=== PATIENT | female | born 1990 | race Caucasian/White ===

== ENCOUNTER → 2017-12-09 | Outpatient (REF) | payer OTHER, MEDICAID ==
[2017-12-09 15:28] LABS: CHLAMYDIA DNA AMPLIFICATION NEGATIVE (NEGATIVE); GC DNA AMPLIFICATION NEGATIVE (NEGATIVE)
== END ==
LOC: M LAB REF 13:04
DX: Z34.82 Encounter for supervision of other normal pregnancy, second trimester (principal)

== ENCOUNTER → 2018-01-11 | Outpatient (CLI) | payer OTHER ==
[2018-01-11 13:53] LABS: BASO % 0.2 % (0.0-1.0); EOS # 0.2 10^3/uL (0.0-0.50); EOS % 1.5 % (0.0-3.0); HEMOGLOBIN 9.6 g/dl (12.0-15.5); LYMPH # 1.7 10^3/uL (1.5-6.5); LYMPH % 16.5 % (24.0-44.0); MEAN CORPUSCULAR HEMOGLOBIN 28.3 pg (27.0-33.0); MEAN CORPUSCULAR HGB CONC 33.1 g/dl (32.0-36.5); MEAN CORPUSCULAR VOLUME 85.5 fl (80.0-96.0); MONO # 0.7 10^3/uL (0.0-0.8); MONO % 6.5 % (0.0-5.0); NEUTROPHILS # 7.6 10^3/uL (1.8-7.7); NEUTROPHILS % 74.3 % (36.0-66.0); PLATELET COUNT, AUTOMATED 292 10^3/uL (150-450); RED BLOOD COUNT 3.39 10^6/uL (4.00-5.40); RED CELL DISTRIBUTION WIDTH 13.7 % (11.5-14.5); WHITE BLOOD COUNT 10.2 10^3/uL (4.0-10.0)
[2018-01-11 14:15] LABS: TOTAL PROTEIN,RANDOM URINE 48.4 MG/DL (0.0-12.0)
[2018-01-11 14:17] LABS: ALT/SGPT 19 U/L (12-78); AST/SGOT 17 U/L (7-37); BILIRUBIN,TOTAL 0.4 MG/DL (0.2-1.0); GLOMERULAR FILTRATION RATE > 60.0 (>60); LDH LACTATE DEHYDROGENASE 162 U/L (84-246); URIC ACID 2.6 MG/DL (2.6-6.0)
== END ==
LOC: M LAB 12:44
DX: Z34.82 Encounter for supervision of other normal pregnancy, second trimester (principal); Z3A.00 Weeks of gestation of pregnancy not specified
CPT/HCPCS: 84460

== ENCOUNTER → 2018-01-18 | Outpatient (CLI) | payer OTHER ==
[2018-01-18 14:23] LABS: BASO % 0.2 % (0.0-1.0); EOS # 0.2 10^3/uL (0.0-0.50); EOS % 2.1 % (0.0-3.0); HEMATOCRIT 28.9 % (36.0-47.0); HEMOGLOBIN 9.4 g/dl (12.0-15.5); IMMATURE GRANULOCYTE % 1.2 % (0-3.0); LYMPH # 1.8 10^3/uL (1.5-6.5); LYMPH % 20.5 % (24.0-44.0); MEAN CORPUSCULAR HEMOGLOBIN 27.8 pg (27.0-33.0); MEAN CORPUSCULAR HGB CONC 32.5 g/dl (32.0-36.5); MEAN CORPUSCULAR VOLUME 85.5 fl (80.0-96.0); MONO # 0.6 10^3/uL (0.0-0.8); MONO % 6.5 % (0.0-5.0); NEUTROPHILS # 6.2 10^3/uL (1.8-7.7); NEUTROPHILS % 69.5 % (36.0-66.0); PLATELET COUNT, AUTOMATED 347 10^3/uL (150-450); RED BLOOD COUNT 3.38 10^6/uL (4.00-5.40); RED CELL DISTRIBUTION WIDTH 13.7 % (11.5-14.5)
[2018-01-18 14:54] LABS: ALBUMIN 2.5 GM/DL (3.2-5.2); ALBUMIN/GLOBULIN RATIO 0.57 (1.00-1.93); ALKALINE PHOSPHATASE 80 U/L (45-117); ALT/SGPT 18 U/L (12-78); ANION GAP 9 MEQ/L (8-16); AST/SGOT 10 U/L (7-37); BILIRUBIN,TOTAL 0.3 MG/DL (0.2-1.0); BLOOD UREA NITROGEN 8 MG/DL (7-18); CARBON DIOXIDE LEVEL 24 MEQ/L (21-32); CHLORIDE LEVEL 104 MEQ/L (98-107); CREATININE FOR GFR 0.32 MG/DL (0.55-1.30); GLOMERULAR FILTRATION RATE > 60.0 (>60); GLUCOSE, FASTING 86 MG/DL (70-100); NT-PRO BNP 127 PG/ML (<125); POTASSIUM SERUM 3.7 MEQ/L (3.5-5.1); SODIUM LEVEL 137 MEQ/L (136-145); TOTAL PROTEIN 6.9 GM/DL (6.4-8.2)
== END ==
LOC: M LAB 13:14
DX: O99.89 Other specified diseases and conditions complicating pregnancy, childbirth and the puerperium (principal); Z36.89 Encounter for other specified antenatal screening; M79.606 Pain in leg, unspecified
CPT/HCPCS: 71046

== ENCOUNTER → 2018-03-15 | Outpatient (REF) | payer OTHER | LOC: M LAB REF 17:43 | DX: O99.333 Smoking (tobacco) complicating pregnancy, third trimester (principal) ==

== ENCOUNTER 2018-03-16 21:51 | Outpatient (CLI) | payer OTHER | END 2018-03-16 23:48 | disposition home or self-care (01) | LOC: M LDO 21:51 | DX: O26.893 Other specified pregnancy related conditions, third trimester (principal); Z3A.36 36 weeks gestation of pregnancy | CPT/HCPCS: 59025 ==

== ENCOUNTER → 2018-03-20 | Outpatient (CLI) | payer OTHER | LOC: M SMT 11:00 | DX: Z36.9 Encounter for antenatal screening, unspecified (principal); Z3A.34 34 weeks gestation of pregnancy | CPT/HCPCS: 76816 ==

== ENCOUNTER 2018-03-27 10:35 | Inpatient (IN) | payer OTHER ==
[2018-03-27 13:14] LABS: AMPHETAMINES URINE REFLEX NEGATIVE (NEGATIVE); BARBITURATES URINE REFLEX NEGATIVE (NEGATIVE); BENZODIAZEPINES URINE REFLEX NEGATIVE (NEGATIVE); CANNABINOIDS URINE REFLEX NEGATIVE (NEGATIVE); COCAINE METABOLITE URINE REFLE NEGATIVE (NEGATIVE); METHADONE URINE REFLEX NEGATIVE (NEGATIVE); OPIATES URINE REFLEX NEGATIVE (NEGATIVE); PHENCYCLIDINE URINE REFLEX NEGATIVE (NEGATIVE)
[2018-03-27] MEDS: LR 1,000 ML IV ×3 (13:48→20:59)
[2018-03-27] MEDS: miSOPROStol 50 MCG 1/2 TAB (S0191) PO (13:50)
[2018-03-27 13:52] LABS: HEMATOCRIT 35.3 % (36.0-47.0); HEMOGLOBIN 11.9 g/dl (12.0-15.5); MEAN CORPUSCULAR HGB CONC 33.7 g/dl (32.0-36.5); MEAN CORPUSCULAR VOLUME 83.1 fl (80.0-96.0); PLATELET COUNT, AUTOMATED 427 10^3/uL (150-450); RED BLOOD COUNT 4.25 10^6/uL (4.00-5.40); WHITE BLOOD COUNT 14.2 10^3/uL (4.0-10.0)
[2018-03-27 14:20] LABS: ALBUMIN/GLOBULIN RATIO 0.73 (1.00-1.93); ALKALINE PHOSPHATASE 172 U/L (45-117); ALT/SGPT 17 U/L (12-78); ANION GAP 7 MEQ/L (8-16); AST/SGOT 17 U/L (7-37); BILIRUBIN,DIRECT 0.1 MG/DL (0.0-0.2); BILIRUBIN,TOTAL 0.4 MG/DL (0.2-1.0); BLOOD UREA NITROGEN 9 MG/DL (7-18); CALCIUM LEVEL 8.9 MG/DL (8.5-10.1); CARBON DIOXIDE LEVEL 27 MEQ/L (21-32); CHLORIDE LEVEL 102 MEQ/L (98-107); CREATININE FOR GFR 0.55 MG/DL (0.55-1.30); GLOMERULAR FILTRATION RATE > 60.0 (>60); GLUCOSE, FASTING 73 MG/DL (70-100); POTASSIUM SERUM 3.8 MEQ/L (3.5-5.1); SODIUM LEVEL 136 MEQ/L (136-145); TOTAL PROTEIN 7.1 GM/DL (6.4-8.2)
[2018-03-27] MEDS ORDERED: FENTANYL 2MCG/ML ROPIVACAINE 0.2% IN 0.9% NACL 200ML IVBAG As Ordered (17:33)
[2018-03-27 18:46] LABS: INR 0.97
[2018-03-27 18:47] LABS: PARTIAL THROMBOPLASTIN TIME 49.2 SECONDS (25.4-37.6)
[2018-03-27] MEDS ORDERED: ePHEDrine SULFATE 25 MG/5 ML(5MG/ML) SYRINGE As Ordered (19:47)
[2018-03-27] MEDS ORDERED: REFRIGERATOR IV KEYS XX (20:00)
[2018-03-27] MEDS ORDERED: EPIDURAL/PCA KEYS XX (20:00)
[2018-03-27] MEDS ORDERED: ePHEDrine SULFATE 25 MG/5 ML(5MG/ML) SYRINGE IV (20:00)
[2018-03-27] MEDS ORDERED: ONDANSETRON 4MG/2ML VIAL (J2405) IV (20:00)
[2018-03-27] MEDS ORDERED: LACTATED RINGER'S 1000 ML IV (20:00)
[2018-03-27] MEDS ORDERED: EPIDURAL COMMENT XX (20:00)
[2018-03-27] MEDS ORDERED: diphenhydrAMINE INJ 50MG/ML VIAL (J1200) IV (20:00)
[2018-03-27] MEDS ORDERED: FENTANYL/ROPIVACAINE/NACL BAG 200 ML EPIDURAL (20:00)
[2018-03-27] MEDS ORDERED: NALOXONE INJ 0.4 MG/1 ML VIAL (J2310) IV (20:00)
[2018-03-27] MEDS: POTASSIUM CHLORIDE 10 MEQ SR TABLET PO (20:57)
[2018-03-27] MEDS: FUROSEMIDE 20 MG TAB PO (20:57)
[2018-03-27] MEDS: BUPRENORPHINE 8MG TAB (PATIENT'S OWN MED) PO (20:57)
[2018-03-27] MEDS: OXYTOCIN DRIP 30 UNITS in APPROPRIATE DILUENT 1 EA IV (20:59)
[2018-03-27] MEDS: FERROUS SULFATE 325MG TAB PO (21:00)
[2018-03-27] MEDS ORDERED: POTASSIUM CHLORIDE 10 MEQ SR TABLET PO (21:00)
[2018-03-27 22:54] LABS: CORD GAS ABE V 1.4; CORD GAS HCO3 V 29.5 MEQ/L; CORD GAS O2 SAT V 25.9 %; CORD GAS PCO2 V 59.5 mmHg; CORD GAS PH V 7.313 UNITS; CORD GAS PO2 V 13.6 mmHg; CORD GAS SBC V 23.6 MEQ/L; CORD GAS TCO2 V 31.3 MEQ/L
[2018-03-27 22:57] LABS: CORD GAS ABE A 2.4; CORD GAS HCO3 A 31.8 MEQ/L; CORD GAS PCO2 A 68.7 mmHg; CORD GAS PH A 7.283 UNITS; CORD GAS PO2 A 10.9 mmHg; CORD GAS SBC A 24.1 MEQ/L; CORD GAS TCO2 A 33.9 MEQ/L
[2018-03-27] MEDS: OXYTOCIN INJ 10 UNITS/ML VIAL (J2590) IM (23:15)
[2018-03-27] MEDS ORDERED: RHOGAM 300 MCG (1500 IU) INJ (J2790) IM (23:15)
[2018-03-27] MEDS ORDERED: MEASLES,MUMPS,RUBELLA VACCINE INJ (MMR-II) (90707) SC (23:15)
[2018-03-27] MEDS ORDERED: METHYLERGONOVINE MALEATE 0.2 MG TAB PO (23:15)
[2018-03-27] MEDS ORDERED: ANUSOL HC CREAM 30GM TOP (23:15)
[2018-03-28] MEDS: IBUPROFEN 800 MG TAB PO ×3 (01:33→21:00)
[2018-03-28] MEDS: DIBUCAINE 1% OINTMENT 30GM TOP (03:53)
[2018-03-28] MEDS: FERROUS SULFATE 325MG TAB PO ×2 (08:33→21:00)
[2018-03-28] MEDS: PRENATAL VITAMINS CHEWABLE TABLET PO (08:33)
[2018-03-28] MEDS: FUROSEMIDE 20 MG TAB PO ×2 (08:33→21:01)
[2018-03-28] MEDS: POTASSIUM CHLORIDE 10 MEQ SR TABLET PO ×2 (08:34→21:00)
[2018-03-28] MEDS: BUPRENORPHINE 8MG TAB (PATIENT'S OWN MED) PO ×2 (08:34→20:58)
[2018-03-28] MEDS ORDERED: BUPRENORPHINE 8MG TAB (PATIENT'S OWN MED) PO (09:00)
[2018-03-28] MEDS: MOM 30ML SUSPENSION UDC PO (14:14)
[2018-03-28] MEDS: DOCUSATE SODIUM 100 MG CAP PO (14:14)
[2018-03-29] MEDS: PRENATAL VITAMINS CHEWABLE TABLET PO (09:27)
[2018-03-29] MEDS: POTASSIUM CHLORIDE 10 MEQ SR TABLET PO (09:27)
[2018-03-29] MEDS: FUROSEMIDE 20 MG TAB PO (09:27)
[2018-03-29] MEDS: FERROUS SULFATE 325MG TAB PO (09:27)
[2018-03-29] MEDS: BUPRENORPHINE 8MG TAB (PATIENT'S OWN MED) PO (09:27)
[2018-03-29] MEDS: INFLUENZA QUADRIVALENT PF VACCINE 0.5ML SYRINGE (90686) IM (12:08)
== END 2018-03-29 12:15 | disposition home or self-care (01) | DRG 560 ==
LOC: M LDI 10:35 → M OBS 03-28 01:12
PROC: 10E0XZZ Delivery of Products of Conception, External Approach (ICD-10-PCS; principal; 2018-03-27)
PROC: 0HQ9XZZ Repair Perineum Skin, External Approach (ICD-10-PCS; 2018-03-27)
PROC: 3E033VJ Introduction of Other Hormone into Peripheral Vein, Percutaneous Approach (ICD-10-PCS; 2018-03-27)
DX: O98.42 Viral hepatitis complicating childbirth (principal); O26.62 Liver and biliary tract disorders in childbirth; K72.10 Chronic hepatic failure without coma; E88.09 Other disorders of plasma-protein metabolism, not elsewhere classified; O99.324 Drug use complicating childbirth; Z37.0 Single live birth; Z3A.38 38 weeks gestation of pregnancy; B18.2 Chronic viral hepatitis C; F17.200 Nicotine dependence, unspecified, uncomplicated; F11.21 Opioid dependence, in remission; Z79.899 Other long term (current) drug therapy; O99.02 Anemia complicating childbirth; D64.9 Anemia, unspecified; O70.0 First degree perineal laceration during delivery; O99.284 Endocrine, nutritional and metabolic diseases complicating childbirth; O99.334 Smoking (tobacco) complicating childbirth; O99.62 Diseases of the digestive system complicating childbirth

== ENCOUNTER 2021-03-31 12:13 | Emergency (ER) | payer OTHER ==
[~2021-03-31] VITALS: Ht 160 cm; Wt 54.1 kg
[~2021-03-31 12:13] MED LIST: BUPR7.5D PO; COLA100C5 PO; FERR325T3 PO; GABA-283 PO; IBUP-1114 PO; IRON27TA2 PO; K-TA10TA2 PO; K-TA1TAB PO; LASI20TA3 PO; MAPA500T2 PO; OXYC1TAB23 PO; PRENTAB9 PO
[2021-03-31] MEDS ORDERED: ASPI-226 (12:33)
[2021-03-31] MEDS ORDERED: CITA20TA6 (12:33)
[2021-03-31] MEDS ORDERED: LIDO1CRE2 (12:33)
[2021-03-31] MEDS ORDERED: ACETAMINOPHEN 500 MG TAB PO ONE (17:50)
--- NOTE | 2021-03-31 18:25 | REP ---
INDICATION: ischemic 2nd toe COMPARISON: None. TECHNIQUE: AP, lateral, bilateral oblique views left 2nd toe. FINDINGS: Osteopenia and degenerative changes are appreciated. No evidence for acute fracture or dislocation. No subcutaneous emphysema or foreign body. IMPRESSION: Diffuse osteopenia and degenerative changes.. No acute fracture or dislocation. <Electronically signed by Desmond Larson > 03/31/21 [id number]
[2021-03-31] MEDS ORDERED: AUGMENTIN 875 MG TAB PO ONE (19:00)
[2021-03-31 19:06] LABS: BASO % 0.2 % (0.0-1.0); EOS # 0.4 10^3/uL (0.0-0.5); EOS % 3.2 % (0.0-3.0); HEMATOCRIT 32.1 % (36.0-47.0); HEMOGLOBIN 10.5 g/dl (12.0-15.5); LYMPH # 2.6 10^3/uL (1.5-5.0); LYMPH % 20.2 % (24.0-44.0); MEAN CORPUSCULAR HEMOGLOBIN 27.6 pg (27.0-33.0); MEAN CORPUSCULAR HGB CONC 32.7 g/dl (32.0-36.5); MEAN CORPUSCULAR VOLUME 84.3 fl (80.0-96.0); MONO # 1.1 10^3/uL (0.0-0.8); MONO % 8.3 % (2.0-8.0); NEUTROPHILS # 8.8 10^3/uL (1.5-8.5); NEUTROPHILS % 67.2 % (36.0-66.0); PLATELET COUNT, AUTOMATED 378 10^3/uL (150-450); RED BLOOD COUNT 3.81 10^6/uL (4.00-5.40)
[2021-03-31 19:26] VITALS: BP 102/65
[2021-03-31 19:30] LABS: BLOOD UREA NITROGEN 17 MG/DL (7-18); C REACTIVE PROTEIN QUANTITATIV 1.88 MG/DL (0.00-0.30); CALCIUM LEVEL 9.1 MG/DL (8.5-10.1); CARBON DIOXIDE LEVEL 25 MEQ/L (21-32); CHLORIDE LEVEL 106 MEQ/L (98-107); CREATININE FOR GFR 0.73 MG/DL (0.55-1.30); GLOMERULAR FILTRATION RATE > 60.0 (>60); GLUCOSE, FASTING 85 MG/DL (70-100); POTASSIUM SERUM 4.7 MEQ/L (3.5-5.1); SODIUM LEVEL 135 MEQ/L (136-145)
[2021-03-31] MEDS ORDERED: AUGM875T28 PO (19:34)
== END 2021-03-31 19:57 | disposition home or self-care (01) ==
LOC: M ED 12:13
DX: L97.529 Non-pressure chronic ulcer of other part of left foot with unspecified severity (principal); M85.9 Disorder of bone density and structure, unspecified; I73.00 Raynaud's syndrome without gangrene; Z79.899 Other long term (current) drug therapy; Z79.82 Long term (current) use of aspirin